=== PATIENT | male | born 1945 | race Hispanic/Latino ===

== ENCOUNTER 2018-01-06 11:58 | Inpatient (IN) | payer MEDICARE, OTHER ==
[2018-01-06] MEDS ORDERED: DUONEB *Not for PRN Use IH ONE ×3 (12:42→12:48)
--- NOTE | 2018-01-06 12:47 | Emergency Department Report ---
ED General Adult HPI - General Chief complaint: Dyspnea/Respdistress Stated complaint: JUD Time Seen by Provider: 01/06/18 12:28 Source: patient, EMS Mode of arrival: Stretcher Limitations: No Limitations - History of Present Illness Initial comments: 72-year-old male all old records at [facility]. mo, here eval increasing sob x 2 wks since finished xrt for isolated r lung nodule ca that was blocking the bronchile tube, here w/ hx of esld, with increasing malaise and failure to thrive since finished xrt 2 wks ago, no fever but cough mild prurlence , hx of pneumonia shot and flu shot,( this year), hx of copd received neb and solumedrol en route, and was on nrb en route but is on home o2 now at sat of 92 % now, presents w/ dyspnea and diff breathing worsening x 2 wks. - Related Data Home Medications Medication Instructions Recorded Confirmed Last Taken Albuterol Sulfate [Proair 90 mcg IH 4XD PRN 01/06/18 01/06/18 Unknown Respiclick] Calcipotriene [Calcipotriene 1 applicatio TP BID 01/06/18 01/06/18 Unknown 0.005%] Clobetasol Propionate [Clobetasol 1 applicatio TP BID 01/06/18 01/06/18 Unknown Propionate 0.05%] Desonide [Desonide 0.05%] 1 applicatio TP BID 01/06/18 01/06/18 Unknown HYDROmorphone [Dilaudid] 1 mg PO Q6HR PRN 01/06/18 01/06/18 Unknown Lactulose 10 gm PO BID 01/06/18 01/06/18 Unknown Levofloxacin [Levaquin] 750 mg PO QDAY 01/06/18 01/06/18 Unknown Megestrol Acetate [Megace Es] 1,250 mg PO QDAY 01/06/18 01/06/18 Unknown Mometasone Furoate [Asmanex] 220 mcg IH BID 01/06/18 01/06/18 Unknown Omeprazole 20 mg PO QDAY 01/06/18 01/06/18 Unknown guaiFENesin [Guaifenesin] 400 mg PO TID PRN 01/06/18 01/06/18 Unknown Allergies Allergy/AdvReac Type Severity Reaction Status Date / Time No Known Allergies Allergy Unverified 01/06/18 12:22 ED Review of Systems ROS: Stated complaint: JUD Other details as noted in HPI Comment: All other systems reviewed and negative Eyes: denies: eye pain ENT: denies: ear pain, throat pain Respiratory: shortness of breath, SOB with exertion, SOB at rest, wheezing Cardiovascular: denies: chest pain, palpitations, syncope, paroxysmal nocturnal dyspnea Endocrine: denies: excessive sweating Gastrointestinal: denies: abdominal pain, nausea, vomiting, diarrhea, constipation, hematemesis, hematochezia Genitourinary: denies: urgency, dysuria, hematuria, discharge Neurological: other (baseline ms). denies: numbness, paresthesias, abnormal gait, vertigo Hematological/Lymphatic: denies: easy bruising ED Past Medical Hx - Past Medical History Previous Medical History?: Yes Hx Liver Disease: Yes Hx of Cancer: Yes (lung) - Social History Smoking Status: Former Smoker - Medications Home Medications: Home Medications Medication Instructions Recorded Confirmed Last Taken Type Albuterol Sulfate [Proair 90 mcg IH 4XD PRN 01/06/18 01/06/18 Unknown History Respiclick] Calcipotriene [Calcipotriene 1 applicatio TP BID 01/06/18 01/06/18 Unknown History 0.005%] Clobetasol Propionate [Clobetasol 1 applicatio TP BID 01/06/18 01/06/18 Unknown History Propionate 0.05%] Desonide [Desonide 0.05%] 1 applicatio TP BID 01/06/18 01/06/18 Unknown History HYDROmorphone [Dilaudid] 1 mg PO Q6HR PRN 01/06/18 01/06/18 Unknown History Lactulose 10 gm PO BID 01/06/18 01/06/18 Unknown History Levofloxacin [Levaquin] 750 mg PO QDAY 01/06/18 01/06/18 Unknown History Megestrol Acetate [Megace Es] 1,250 mg PO QDAY 01/06/18 01/06/18 Unknown History Mometasone Furoate [Asmanex] 220 mcg IH BID 01/06/18 01/06/18 Unknown History Omeprazole 20 mg PO QDAY 01/06/18 01/06/18 Unknown History guaiFENesin [Guaifenesin] 400 mg PO TID PRN 01/06/18 01/06/18 Unknown History ED Physical Exam - General Limitations: No Limitations General appearance: alert, anxious - Head Head exam: Present: atraumatic, normocephalic - Eye Eye exam: Present: PERRL, EOMI - ENT ENT exam: Present: normal exam, normal orophraynx, mucous membranes dry - Neck Neck exam: Present: normal inspection, full ROM. Absent: tenderness, meningismus, lymphadenopathy, thyromegaly - Respiratory Respiratory exam: Present: respiratory distress, wheezes, rales, rhonchi, prolonged expiratory. Absent: stridor - Cardiovascular Cardiovascular Exam: Present: tachycardia. Absent: systolic murmur, diastolic murmur, rubs, gallop - GI/Abdominal GI/Abdominal exam: Present: soft. Absent: tenderness, guarding, rebound, mass, bruit, pulsatile mass - Extremities Exam Extremities exam: Absent: tenderness, pedal edema, joint swelling, calf tenderness - Neurological Exam Neurological exam: Present: alert, oriented X3, CN II-XII intact. Absent: motor sensory deficit - Psychiatric Psychiatric exam: Present: normal affect ED Course Vital Signs 01/06/18 01/06/18 01/06/18 12:09 12:15 12:17 Temperature 98 F Pulse Rate 118 H 116 H Respiratory 29 H 33 H Rate Blood Pressure 127/83 135/92 O2 Sat by Pulse 98 97 98 Oximetry 01/06/18 01/06/18 01/06/18 12:30 12:45 13:00 Temperature Pulse Rate 115 H 113 H 117 H Respiratory 34 H 35 H 24 Rate Blood Pressure 128/84 125/86 112/71 O2 Sat by Pulse 93 92 90 Oximetry 01/06/18 01/06/18 01/06/18 13:15 13:30 13:45 Temperature Pulse Rate 109 H 106 H 108 H Respiratory 24 25 H 20 Rate Blood Pressure 116/79 115/76 99/73 O2 Sat by Pulse 95 97 94 Oximetry 01/06/18 01/06/18 01/06/18 14:00 15:00 16:00 Temperature Pulse Rate 113 H 110 H 108 H Respiratory 24 32 H 29 H Rate Blood Pressure 127/78 114/76 115/82 O2 Sat by Pulse 94 Oximetry - Reevaluation(s) Reevaluation #1: 01/06/18 17:18 Patient placed on cardiac care nurse and continuous pulse ox DuoNeb started steroids were given workup for dyspnea and failure to thrive was ordered ED Medical Decision Making - Lab Data Result diagrams: 01/06/18 12:50 01/06/18 12:50 - EKG Data -: EKG Interpreted by Me EKG shows normal: sinus rhythm - EKG Data When compared to previous EKG there are: other (no acute ischemic change) - Radiology Data Radiology results: report reviewed - Medical Decision Making CT was unable to be completed patient was uncooperative. Therefore a VQ scan. Patient was discussed with Dr. Mchugh for admitted on the hospitalist service and status the [facility] is on diversion. She was requesting transfer to the [facility] but they're not working transfers at this time. Patient needs admission for persistent dyspnea. Does have history of lung cancer status post x-ray treatment weeks ago. He is also fair to thrive and malaise. He also has history of COPD with acute COPD exacerbation. I will need to admit given his persistent worsening dyspnea elevated d-dimer rule out DVT PE with the dyspnea and hypoxia Dr. Mchugh's awhere of the patient and will evaluate the patient in the ED, for admit. Critical Care Time: Yes Critical care time in (mins) excluding proc time.: 30 Critical care attestation.: If time is entered above; I have spent that time in minutes in the direct care of this critically ill patient, excluding procedure time. ED Disposition Clinical Impression: Acute dyspnea, COPD (chronic obstructive pulmonary disease), Hypoxia, Elevated d-dimer Disposition: OP ADMIT IP TO THIS HOSP Is pt being admited?: Yes Condition: Stable Instructions: Chronic Obstructive Pulmonary Disease (ED) Time of Disposition: 17:23
[2018-01-06 13:10] LABS: Hematocrit 44.7 % (35.5-45.6); Mean Corpuscular HGB Conc 34 % (32-34); Mean Corpuscular Hemoglobin 32 pg (28-32); Mean Corpuscular Volume 96 fl (84-94); Platelet Count 265 K/mm3 (140-440); Red Blood Count 4.64 M/mm3 (3.65-5.03); Red Cell Distribution Width 16.4 % (13.2-15.2)
[2018-01-06 13:17] LABS: INR 1.05 (0.87-1.13)
[2018-01-06 13:19] LABS: BUN/Creatinine Ratio 56; Blood Urea Nitrogen 39 mg/dL (9-20); Calcium 9.4 mg/dL (8.4-10.2); Hemolysis Index 108
[2018-01-06 14:20] LABS: Band Neutrophils # (Manual) 0.8 K/mm3; Basophils % (Manual) 0 % (0.0-1.8); Eosinophils % (Manual) 0 % (0.0-4.3); Monocytes % (Manual) 2 % (0.0-7.3); RBC Morphology Normal; Total Cells Counted 100
--- NOTE | 2018-01-06 14:42 | XRay Report ---
AP CHEST: HISTORY: Shortness of breath No comparison. The lungs are hyperinflated consistent with severe emphysema. Interstitial markings are prominent bilaterally but no convincing pneumonia, large pleural effusion or pneumothorax. Heart size and pulmonary vascularity are within normal limits. Lines and tubes overlie the chest. IMPRESSION: Advanced emphysema.
[2018-01-06] MEDS ORDERED: NACL 0.9% 500 ML 500 ML IV ONE (15:33)
[2018-01-06] MEDS ORDERED: DILAUDID PO ONE (17:14)
--- NOTE | 2018-01-06 17:18 | History and Physical Report ---
History of Present Illness Chief complaint: I cant breathe History of present illness: 72 YO Male with Lung Cancer S/P Radiation Therapy, COPD, Chronic Respiratory Failure on Home Oxygen, Severe Malnutrition presents to ED for evaluation. Pt states that he has experienced shortness of breath for the past 2 weeks, with worsening symptoms over the past 2 days. Pt acknowledges dypsnea at rest and with exertion. Pt denies fever, chills, CP, Palpitations, Syncope, Hemoptysis, leg swelling, calf pain, individual/family history of DVT/PE, recent ill contacts. PT seen and evaluated in ED and found to have hypoxemic respiratory failure as well as Bilateral lower lobe pneumonia which is complicated by sepsis. Pt admitted and initiated on sepsis/pneumonia protocol. Past History Past Medical History: cancer Past Surgical History: No surgical history, Other (reviewed) Social history: , lives with family Family history: hypertension Medications and Allergies Allergies Allergy/AdvReac Type Severity Reaction Status Date / Time No Known Allergies Allergy Unverified 01/06/18 12:22 Home Medications Medication Instructions Recorded Confirmed Last Taken Type Albuterol Sulfate [Proair 90 mcg IH 4XD PRN 01/06/18 01/06/18 Unknown History Respiclick] Calcipotriene [Calcipotriene 1 applicatio TP BID 01/06/18 01/06/18 Unknown History 0.005%] Clobetasol Propionate [Clobetasol 1 applicatio TP BID 01/06/18 01/06/18 Unknown History Propionate 0.05%] Desonide [Desonide 0.05%] 1 applicatio TP BID 01/06/18 01/06/18 Unknown History HYDROmorphone [Dilaudid] 1 mg PO Q6HR PRN 01/06/18 01/06/18 Unknown History Lactulose 10 gm PO BID 01/06/18 01/06/18 Unknown History Levofloxacin [Levaquin] 750 mg PO QDAY 01/06/18 01/06/18 Unknown History Megestrol Acetate [Megace Es] 1,250 mg PO QDAY 01/06/18 01/06/18 Unknown History Mometasone Furoate [Asmanex] 220 mcg IH BID 01/06/18 01/06/18 Unknown History Omeprazole 20 mg PO QDAY 01/06/18 01/06/18 Unknown History guaiFENesin [Guaifenesin] 400 mg PO TID PRN 01/06/18 01/06/18 Unknown History Active Meds: Active Medications Hydromorphone HCl (Dilaudid) 1 mg PO ONCE ONE Stop: 01/06/18 17:15 Review of Systems Constitutional: weight loss, no weight gain, no fever, no chills Ears, nose, mouth and throat: no ear pain, no ear discharge, no tinnitis, no decreased hearing, no nose pain Cardiovascular: no orthopnea, no palpitations, no rapid/irregular heart beat, no edema, no syncope Respiratory: shortness of breath, no cough, no cough with sputum Gastrointestinal: no abdominal pain, no nausea, no vomiting, no diarrhea, no constipation Genitourinary Male: no hematuria, no flank pain, no discharge, no urinary frequency, no urinary hesitancy Rectal: no pain, no incontinence, no bleeding Musculoskeletal: no neck stiffness, no neck pain, no shooting arm pain, no low back pain Integumentary: no rash, no pruritis, no redness, no sores, no wounds, no jaundice Neurological: no head injury, no transient paralysis, no paralysis, no weakness , no parathesias, no numbness, no tingling Psychiatric: no anxiety, no memory loss, no change in sleep habits, no sleep disturbances, no insomnia, no hypersomnia, no change in appetite Endocrine: no cold intolerance, no heat intolerance, no polyphagia, no excessive thirst, no polydipsia Hematologic/Lymphatic: no easy bruising, no easy bleeding, no lymphadenopathy, no lymphedema Allergic/Immunologic: no urticaria, no allergic rhinitis, no wheezing Exam - Constitutional Vitals: Temp Pulse Resp BP Pulse Ox 98 F 108 H 29 H 115/82 94 01/06/18 12:17 01/06/18 16:00 01/06/18 16:00 01/06/18 16:00 01/06/18 15:00 General appearance: Present: mild distress, cachectic - EENT Eyes: Present: PERRL ENT: hearing intact, clear oral mucosa - Neck Neck: Present: supple, normal ROM - Respiratory Respiratory effort: labored Respiratory: bilateral: diminished, rhonchi - Cardiovascular Heart Sounds: Present: S1 & S2. Absent: rub, click - Extremities Extremities: pulses symmetrical, No edema Peripheral Pulses: abnormal (capillary refill greater than 3.6 seconds) - Abdominal General gastrointestinal: Present: soft, non-tender, non-distended, normal bowel sounds Male genitourinary: Present: normal - Integumentary Integumentary: Present: clear, warm, dry, decreased turgor - Musculoskeletal Musculoskeletal: generalized weakness - Psychiatric Psychiatric: appropriate mood/affect, intact judgment & insight - Neurologic Neurologic: CNII-XII intact, moves all extremities Results - Labs CBC & Chem 7: 01/06/18 12:50 01/06/18 12:50 Labs: Abnormal lab results 01/06/18 01/06/18 01/06/18 Range/Units 12:50 12:50 12:53 WBC 12.8 H (4.5-11.0) K/mm3 MCV 96 H (84-94) fl RDW 16.4 H (13.2-15.2) % Seg Neuts % (Manual) 90 H (40.0-70.0) % Lymphocytes % (Manual) 2 L (13.4-35.0) % Seg Neutrophils # Man 11.5 H (1.8-7.7) K/mm3 Lymphocytes # (Manual) 0.2 L (1.2-5.4) K/mm3 D-Dimer 700.31 H (0-234) ng/mlDDU Potassium 5.7 H (3.6-5.0) mmol/L BUN 39 H (9-20) mg/dL Creatinine 0.7 L (0.8-1.5) mg/dL Glucose 176 H (75-100) mg/dL Ammonia (25-60) umol/L 01/06/18 Range/Units 13:00 WBC (4.5-11.0) K/mm3 MCV (84-94) fl RDW (13.2-15.2) % Seg Neuts % (Manual) (40.0-70.0) % Lymphocytes % (Manual) (13.4-35.0) % Seg Neutrophils # Man (1.8-7.7) K/mm3 Lymphocytes # (Manual) (1.2-5.4) K/mm3 D-Dimer (0-234) ng/mlDDU Potassium (3.6-5.0) mmol/L BUN (9-20) mg/dL Creatinine (0.8-1.5) mg/dL Glucose (75-100) mg/dL Ammonia 18.0 L (25-60) umol/L Assessment and Plan - Patient Problems (1) Sepsis Current Visit: Yes Status: Acute Qualifiers: Sepsis type: sepsis due to unspecified organism Qualified Code(s): A41.9 - Sepsis, unspecified organism Plan to address problem: IV antibiotic therapy, blood cultures, urinalysis, Chest X ray, blood cultures, serial lactic acid level, monitor uop q shift, (2) Pneumonia Current Visit: Yes Status: Acute Qualifiers: Laterality: bilateral Lung location: lower lobe of lung Plan to address problem: Pneumonia protocol: IV abx, nebulizer, supplemental oxygen, blood cultures, (3) Lung cancer Current Visit: Yes Status: Acute Qualifiers: Lung location: unspecified part of lung Plan to address problem: S/P Radiation therapy, supportive care, Outpatient oncology f/U (4) COPD exacerbation Current Visit: Yes Status: Acute Plan to address problem: supplemental oxygen, nebs, NIPPV as clinically indicated, steroid therapy, IV antibiotic therapy, (5) Acute respiratory failure Current Visit: Yes Status: Acute Qualifiers: Respiratory failure complication: hypoxia Qualified Code(s): J96.01 - Acute respiratory failure with hypoxia Plan to address problem: Supplemental oxygen, nebulizer therapy, IV abx, supportive, NIPPV as clinically indicated, monitor pulse oximetry, D dimer, CTA chest, (6) DVT prophylaxis Current Visit: Yes Status: Acute
[2018-01-06] MEDS ORDERED: TYLENOL PO PRN ×2 (17:28→17:43)
[2018-01-06] MEDS ORDERED: ZOFRAN IV PRN (17:43)
[2018-01-06] MEDS ORDERED: NACL 0.9% 1000 ML IV ONE (17:43)
[2018-01-06] MEDS ORDERED: NON-FORMULARY (Guaifenesin [Guaifenesin] 400 MG) PO PRN (17:47)
[2018-01-06] MEDS ORDERED: ROBITUSSIN PO PRN (20:00)
[2018-01-06] MEDS: DUONEB *Not for PRN Use IH SCH (20:17)
[2018-01-06] MEDS: CEPHULAC PR SCH (21:43)
[2018-01-06] MEDS ORDERED: CLOBETASOL PROPIONATE TP SCH (22:00)
[2018-01-06] MEDS ORDERED: CALCIPOTRIENE TP SCH (22:00)
[2018-01-06] MEDS ORDERED: MOMETASONE FUROATE 220 MCG IH SCH (22:00)
[2018-01-06] MEDS ORDERED: DESONIDE TP SCH (22:00)
[2018-01-06] MEDS: TEMOVATE TP SCH (23:50)
[2018-01-07 00:37] LABS: Bilirubin,Urine NEG (Negative); Blood,Urine NEG (Negative); Color,Urine Yellow (Yellow); Hyaline Casts,Urine 1 /LPF; Mucus,Urine FEW /HPF; Nitrite,Urine NEG (Negative); Protein,Urine <15 mg/dL mg/dL (Negative); RBC,Urine < 1.0 /HPF (0.0-6.0)
[2018-01-07] MEDS: DUONEB *Not for PRN Use IH SCH ×4 (01:08→20:53)
[2018-01-07] MEDS: DILAUDID PO PRN ×2 (01:20→11:02)
[2018-01-07] MEDS ORDERED: ROCEPHIN/NS 2 GM/100 ML 2 GM/100 ML BAG IV SCH (10:00)
[2018-01-07] MEDS ORDERED: NON-FORMULARY (Omeprazole [Omeprazole] 20 MG) PO SCH (10:00)
[2018-01-07] MEDS ORDERED: MEGESTROL ACETATE PO SCH (10:00)
[2018-01-07] MEDS: ZITHROMAX 500 MG in NACL 0.9% 250ML 250 ML IV SCH (10:45)
[2018-01-07] MEDS: PROTONIX PO SCH (11:02)
--- NOTE | 2018-01-07 12:50 | Cat Scan Report ---
CTA CHEST INDICATION: Evaluate for pulmonary embolism. COMPARISON: None similar. FINDINGS: Chest CTA performed following intravenous administration of 100 cc of Omnipaque 350. Rotational MIP's also obtained. Normal heart size. No pericardial effusion or size significant adenopathy. Patent central airway. No aortic aneurysm or dissection. No suspicious pulmonary arterial filling defects. Extensive emphysematous changes throughout both lungs with greatest involvement superiorly. Bibasilar bronchiectasis also noted leading to mild bilateral lower lobe scarring. Right more than left basilar atelectasis also noted with mild hypodense possible right basilar pleural thickening and/or some fluid. Few upper abdominal images demonstrate small calcified hepatic and splenic granulomas. Subtle left hepatic lobe surface nodularity questioned. Partially imaged calcified gallstones measure up to 0.7 cm. A left upper quadrant port tubing extends into the SVC. Osteopenia/osteoporosis. Mild thoracic spine degenerative spurring at few levels. CONCLUSION: 1. No CT evidence of pulmonary embolism in this patient with advanced emphysematous changes, as described. Mild bibasilar atelectasis/chronic changes also noted, as described. 2. Various other incidental findings, as above. Thank you for the opportunity to participate in this patient's care.
[2018-01-07] MEDS: CEPHULAC PR SCH ×2 (13:39→22:34)
[2018-01-07] MEDS: FLONASE NS SCH (15:23)
[2018-01-07] MEDS: cefTRIAXone 2 GM in NACL 0.9% 20 ML IV SCH (15:24)
--- NOTE | 2018-01-07 17:03 | Progress Note ---
Assessment and Plan Assessment and plan: Patient is a 72-year-old man with a history of lung cancer status post radiation therapy, chronic Respiratory Failure on Home Oxygen due to COPD who presents with worsening shortness of breath. Pt admitted and initiated on sepsis /pneumonia protocol. pCXR reported as Advanced emphysema. CTA chest report as Normal heart size. No pericardial effusion or size significant adenopathy. Patent central airway. No aortic aneurysm or dissection. No suspicious pulmonary arterial filling defects. Extensive emphysematous changes throughout both lungs with greatest involvement superiorly. Bibasilar bronchiectasis also noted leading to mild bilateral lower lobe scarring. Right more than left basilar atelectasis also noted with mild hypodense possible right basilar pleural thickening and/or some fluid. Few upper abdominal images demonstrate small calcified hepatic and splenic granulomas. Subtle left hepatic lobe surface nodularity questioned. Partially imaged calcified gallstones measure up to 0.7 cm. A left upper quadrant port tubing extends into the SVC. Osteopenia/osteoporosis. Mild thoracic spine degenerative spurring at few levels. Impression 1. No CT evidence of pulmonary embolism in this patient with advanced emphysematous changes, as described. Mild bibasilar atelectasis/ chronic changes also noted, as described. 2. Various other incidental findings, as above. Thank you for the opportunity to participate in this patient's care. -Acute on chronic hypoxic respiratory failure due to COPD: treat the COPD -AE COPD with sepsis bronchitis: treat with iv steroids, iv abx, nebs -Lung Cancer s/p radiation without lung nodule seen on CTA chest -Bronchiectasis: treat with bronchodilators -No Pneumonia History Interval history: Patient was seen and examined. Follow-up on current diagnosis shortness of breath which still present. Overnight uneventful. Patient denies any nausea/ vomiting or severe headaches. Imaging, nursing note, chart, labs and old chart reviewed. Discussed with patient. and grandson at bedside Hospitalist Physical - Physical exam Narrative exam: GEN: Severely malnourished cachectic BMI 16 NAD, AWAKE, ALERT, ORIENTATED 3 HEENT: NCAT, EOMI, PERRL, OP Clear NECK: supple, no adenopathy, no thyromegaly, no JVD CVS/HEART: RRR, NORMAL S1S2, pulses present bilaterally CHEST/LUNGS: Coarse breath sounds bilaterally with rhonchi, diminished breath sounds bilaterally, Symmetrical chest expansion, reduced air entry bilaterally GI/Abdomen: soft, NTND, good bowel sounds, no guarding or rebound /Bladder: no suprapubic tenderness, no CVA or paraspinal tenderness EXT/Skin: no c/c/e, no obvious rash MSK: FROM x 4 Neuro: CN 2-12 grossly intact, no new focal deficits Psych: calm - Constitutional Vitals: Temp Pulse Resp BP Pulse Ox 97.8 F 121 H 20 100/61 93 01/07/18 15:38 01/07/18 15:38 01/07/18 15:38 01/07/18 15:38 01/07/18 15:38 General appearance: Present: cachectic. Absent: mild distress Results - Labs CBC & Chem 7: 01/06/18 12:50 01/06/18 12:50 Labs: Laboratory Last Values WBC 12.8 K/mm3 (4.5-11.0) H 01/06/18 12:50 RBC 4.64 M/mm3 (3.65-5.03) 01/06/18 12:50 Hgb 15.0 gm/dl (11.8-15.2) 01/06/18 12:50 Hct 44.7 % (35.5-45.6) 01/06/18 12:50 MCV 96 fl (84-94) H 01/06/18 12:50 MCH 32 pg (28-32) 01/06/18 12:50 MCHC 34 % (32-34) 01/06/18 12:50 RDW 16.4 % (13.2-15.2) H 01/06/18 12:50 Plt Count 265 K/mm3 (140-440) 01/06/18 12:50 Add Manual Diff Complete 01/06/18 12:50 Total Counted 100 01/06/18 12:50 Seg Neuts % (Manual) 90 % (40.0-70.0) H 01/06/18 12:50 Band Neutrophils % 6.0 % 01/06/18 12:50 Lymphocytes % (Manual) 2 % (13.4-35.0) L 01/06/18 12:50 Reactive Lymphs % (Man) 0 % 01/06/18 12:50 Monocytes % (Manual) 2 % (0.0-7.3) 01/06/18 12:50 Eosinophils % (Manual) 0 % (0.0-4.3) 01/06/18 12:50 Basophils % (Manual) 0 % (0.0-1.8) 01/06/18 12:50 Metamyelocytes % 0 % 01/06/18 12:50 Myelocytes % 0 % 01/06/18 12:50 Promyelocytes % 0 % 01/06/18 12:50 Blast Cells % 0 % 01/06/18 12:50 Nucleated RBC % Not Reportable 01/06/18 12:50 Seg Neutrophils # Man 11.5 K/mm3 (1.8-7.7) H 01/06/18 12:50 Band Neutrophils # 0.8 K/mm3 01/06/18 12:50 Lymphocytes # (Manual) 0.2 K/mm3 (1.2-5.4) L 01/06/18 12:50 Abs React Lymphs (Man) 0.0 K/mm3 01/06/18 12:50 Monocytes # (Manual) 0.2 K/mm3 (0.0-0.8) 01/06/18 12:50 Eosinophils # (Manual) 0.0 K/mm3 (0.0-0.4) 01/06/18 12:50 Basophils # (Manual) 0.0 K/mm3 (0.0-0.1) 01/06/18 12:50 Metamyelocytes # 0.0 K/mm3 01/06/18 12:50 Myelocytes # 0.0 K/mm3 01/06/18 12:50 Promyelocytes # 0.0 K/mm3 01/06/18 12:50 Blast Cells # 0.0 K/mm3 01/06/18 12:50 WBC Morphology Not Reportable 01/06/18 12:50 Hypersegmented Neuts Not Reportable 01/06/18 12:50 Hyposegmented Neuts Not Reportable 01/06/18 12:50 Hypogranular Neuts Not Reportable 01/06/18 12:50 Smudge Cells Not Reportable 01/06/18 12:50 Toxic Granulation Not Reportable 01/06/18 12:50 Toxic Vacuolation Not Reportable 01/06/18 12:50 Dohle Bodies Not Reportable 01/06/18 12:50 Pelger-Huet Anomaly Not Reportable 01/06/18 12:50 Kuldeep Rods Not Reportable 01/06/18 12:50 Platelet Estimate Not Reportable 01/06/18 12:50 Clumped Platelets Not Reportable 01/06/18 12:50 Plt Clumps, EDTA Not Reportable 01/06/18 12:50 Large Platelets Not Reportable 01/06/18 12:50 Giant Platelets Not Reportable 01/06/18 12:50 Platelet Satelliting Not Reportable 01/06/18 12:50 Plt Morphology Comment Not Reportable 01/06/18 12:50 RBC Morphology Normal 01/06/18 12:50 Dimorphic RBCs Not Reportable 01/06/18 12:50 Polychromasia Not Reportable 01/06/18 12:50 Hypochromasia Not Reportable 01/06/18 12:50 Poikilocytosis Not Reportable 01/06/18 12:50 Anisocytosis Not Reportable 01/06/18 12:50 Microcytosis Not Reportable 01/06/18 12:50 Macrocytosis Not Reportable 01/06/18 12:50 Spherocytes Not Reportable 01/06/18 12:50 Pappenheimer Bodies Not Reportable 01/06/18 12:50 Sickle Cells Not Reportable 01/06/18 12:50 Target Cells Not Reportable 01/06/18 12:50 Tear Drop Cells Not Reportable 01/06/18 12:50 Ovalocytes Not Reportable 01/06/18 12:50 Helmet Cells Not Reportable 01/06/18 12:50 Alvarez-[place] Bodies Not Reportable 01/06/18 12:50 [place] Rings Not Reportable 01/06/18 12:50 Michelle Cells Not Reportable 01/06/18 12:50 Bite Cells Not Reportable 01/06/18 12:50 Crenated Cell Not Reportable 01/06/18 12:50 Elliptocytes Not Reportable 01/06/18 12:50 Acanthocytes (Spur) Not Reportable 01/06/18 12:50 Rouleaux Not Reportable 01/06/18 12:50 Hemoglobin C Crystals Not Reportable 01/06/18 12:50 Schistocytes Not Reportable 01/06/18 12:50 Malaria parasites Not Reportable 01/06/18 12:50 Javid Bodies Not Reportable 01/06/18 12:50 Hem Pathologist Commnt No 01/06/18 12:50 PT 14.2 Sec. (12.2-14.9) 01/06/18 12:53 INR 1.05 (0.87-1.13) 01/06/18 12:53 D-Dimer 700.31 ng/mlDDU (0-234) H 01/06/18 12:53 Sodium 142 mmol/L (137-145) 01/06/18 12:50 Potassium 5.7 mmol/L (3.6-5.0) H 01/06/18 12:50 Chloride 100.1 mmol/L (98-107) 01/06/18 12:50 Carbon Dioxide 27 mmol/L (22-30) 01/06/18 12:50 Anion Gap 21 mmol/L 01/06/18 12:50 BUN 39 mg/dL (9-20) H 01/06/18 12:50 Creatinine 0.7 mg/dL (0.8-1.5) L 01/06/18 12:50 Estimated GFR > 60 ml/min 01/06/18 12:50 BUN/Creatinine Ratio 56 % 01/06/18 12:50 Glucose 176 mg/dL (75-100) H 01/06/18 12:50 Lactic Acid 1.70 mmol/L (0.7-2.0) 01/07/18 04:46 Calcium 9.4 mg/dL (8.4-10.2) 01/06/18 12:50 Ammonia 18.0 umol/L (25-60) L 01/06/18 13:00 Troponin T < 0.010 ng/mL (0.00-0.029) 01/06/18 12:53 NT-Pro-B Natriuret Pep 825.8 pg/mL (0-900) 01/06/18 12:53 Urine Color Yellow (Yellow) 01/06/18 23:55 Urine Turbidity Clear (Clear) 01/06/18 23:55 Urine pH 5.0 (5.0-7.0) 01/06/18 23:55 Ur Specific [place] 1.025 (1.003-1.030) 01/06/18 23:55 Urine Protein <15 mg/dl mg/dL (Negative) 01/06/18 23:55 Urine Glucose (UA) Neg mg/dL (Negative) 01/06/18 23:55 Urine Ketones Neg mg/dL (Negative) 01/06/18 23:55 Urine Blood Neg (Negative) 01/06/18 23:55 Urine Nitrite Neg (Negative) 01/06/18 23:55 Urine Bilirubin Neg (Negative) 01/06/18 23:55 Urine Urobilinogen 4.0 mg/dL (<2.0) 02 23:55 Ur Leukocyte Esterase Neg (Negative) 01/06/18 23:55 Urine WBC (Auto) 1.0 /HPF (0.0-6.0) 01/06/18 23:55 Urine RBC (Auto) < 1.0 /HPF (0.0-6.0) 01/06/18 23:55 U Epithel Cells (Auto) < 1.0 /HPF (0-13.0) 01/06/18 23:55 Hyaline Casts 1 /LPF 01/06/18 23:55 Urine Mucus Few /HPF 01/06/18 23:55 Blood Type A POSITIVE 01/06/18 17:55 Antibody Screen Negative 01/06/18 17:55
[2018-01-07] MEDS: TEMOVATE TP SCH ×2 (17:56→23:00)
[2018-01-08] MEDS: DUONEB *Not for PRN Use IH SCH ×4 (02:40→20:37)
[2018-01-08] MEDS: CEPHULAC PR SCH ×3 (06:26→23:31)
[2018-01-08] MEDS: PROTONIX PO SCH (09:16)
[2018-01-08] MEDS: FLONASE NS SCH (09:17)
[2018-01-08] MEDS: TEMOVATE TP SCH ×2 (09:17→23:34)
[2018-01-08] MEDS: ZITHROMAX 500 MG in NACL 0.9% 250ML 250 ML IV SCH (09:20)
[2018-01-08] MEDS: DILAUDID PO PRN (09:40)
--- NOTE | 2018-01-08 14:34 | Progress Note ---
Assessment and Plan Assessment and plan: Patient is a 72-year-old man with a history of lung cancer status post radiation therapy, chronic Respiratory Failure on Home Oxygen due to COPD who presents with worsening shortness of breath. Pt admitted and initiated on sepsis /pneumonia protocol. pCXR reported as Advanced emphysema. CTA chest report as Normal heart size. No pericardial effusion or size significant adenopathy. Patent central airway. No aortic aneurysm or dissection. No suspicious pulmonary arterial filling defects. Extensive emphysematous changes throughout both lungs with greatest involvement superiorly. Bibasilar bronchiectasis also noted leading to mild bilateral lower lobe scarring. Right more than left basilar atelectasis also noted with mild hypodense possible right basilar pleural thickening and/or some fluid. Few upper abdominal images demonstrate small calcified hepatic and splenic granulomas. Subtle left hepatic lobe surface nodularity questioned. Partially imaged calcified gallstones measure up to 0.7 cm. A left upper quadrant port tubing extends into the SVC. Osteopenia/osteoporosis. Mild thoracic spine degenerative spurring at few levels. Impression 1. No CT evidence of pulmonary embolism in this patient with advanced emphysematous changes, as described. Mild bibasilar atelectasis/ chronic changes also noted, as described. 2. Various other incidental findings, as above. Thank you for the opportunity to participate in this patient's care. -Acute on chronic hypoxic respiratory failure due to COPD: treat the COPD -AE COPD with sepsis bronchitis: treat with iv steroids, iv abx, nebs -Lung Cancer s/p radiation without lung nodule seen on CTA chest -Bronchiectasis: treat with bronchodilators -No Pneumonia Disposition: Anticipate d/c in 1-2 days. he wants to go home today but is concerned that he can't stand, so I ordered PT, he declined placement, History Interval history: Patient was seen and examined. Follow-up on current diagnosis shortness of breath which still present. Overnight uneventful. Patient denies any nausea/ vomiting or severe headaches. Imaging, nursing note, chart, labs and old chart reviewed. Discussed with patient. and grandson at bedside Hospitalist Physical - Physical exam Narrative exam: GEN: Severely malnourished cachectic BMI 16 NAD, AWAKE, ALERT, ORIENTATED 3 HEENT: NCAT, EOMI, PERRL, OP Clear NECK: supple, no adenopathy, no thyromegaly, no JVD CVS/HEART: RRR, NORMAL S1S2, pulses present bilaterally CHEST/LUNGS: Coarse breath sounds bilaterally with rhonchi, diminished breath sounds bilaterally, Symmetrical chest expansion, reduced air entry bilaterally GI/Abdomen: soft, NTND, good bowel sounds, no guarding or rebound /Bladder: no suprapubic tenderness, no CVA or paraspinal tenderness EXT/Skin: no c/c/e, no obvious rash MSK: FROM x 4 Neuro: CN 2-12 grossly intact, no new focal deficits Psych: calm - Constitutional Vitals: Temp Pulse Resp BP Pulse Ox 98.0 F 104 H 20 120/70 96 01/08/18 08:00 01/08/18 14:08 01/08/18 14:08 01/08/18 08:00 01/08/18 10:00 General appearance: Present: cachectic. Absent: mild distress Results - Labs CBC & Chem 7: 01/06/18 12:50 01/06/18 12:50 Labs: Laboratory Last Values WBC 12.8 K/mm3 (4.5-11.0) H 01/06/18 12:50 RBC 4.64 M/mm3 (3.65-5.03) 01/06/18 12:50 Hgb 15.0 gm/dl (11.8-15.2) 01/06/18 12:50 Hct 44.7 % (35.5-45.6) 01/06/18 12:50 MCV 96 fl (84-94) H 01/06/18 12:50 MCH 32 pg (28-32) 01/06/18 12:50 MCHC 34 % (32-34) 01/06/18 12:50 RDW 16.4 % (13.2-15.2) H 01/06/18 12:50 Plt Count 265 K/mm3 (140-440) 01/06/18 12:50 Add Manual Diff Complete 01/06/18 12:50 Total Counted 100 01/06/18 12:50 Seg Neuts % (Manual) 90 % (40.0-70.0) H 01/06/18 12:50 Band Neutrophils % 6.0 % 01/06/18 12:50 Lymphocytes % (Manual) 2 % (13.4-35.0) L 01/06/18 12:50 Reactive Lymphs % (Man) 0 % 01/06/18 12:50 Monocytes % (Manual) 2 % (0.0-7.3) 01/06/18 12:50 Eosinophils % (Manual) 0 % (0.0-4.3) 01/06/18 12:50 Basophils % (Manual) 0 % (0.0-1.8) 01/06/18 12:50 Metamyelocytes % 0 % 01/06/18 12:50 Myelocytes % 0 % 01/06/18 12:50 Promyelocytes % 0 % 01/06/18 12:50 Blast Cells % 0 % 01/06/18 12:50 Nucleated RBC % Not Reportable 01/06/18 12:50 Seg Neutrophils # Man 11.5 K/mm3 (1.8-7.7) H 01/06/18 12:50 Band Neutrophils # 0.8 K/mm3 01/06/18 12:50 Lymphocytes # (Manual) 0.2 K/mm3 (1.2-5.4) L 01/06/18 12:50 Abs React Lymphs (Man) 0.0 K/mm3 01/06/18 12:50 Monocytes # (Manual) 0.2 K/mm3 (0.0-0.8) 01/06/18 12:50 Eosinophils # (Manual) 0.0 K/mm3 (0.0-0.4) 01/06/18 12:50 Basophils # (Manual) 0.0 K/mm3 (0.0-0.1) 01/06/18 12:50 Metamyelocytes # 0.0 K/mm3 01/06/18 12:50 Myelocytes # 0.0 K/mm3 01/06/18 12:50 Promyelocytes # 0.0 K/mm3 01/06/18 12:50 Blast Cells # 0.0 K/mm3 01/06/18 12:50 WBC Morphology Not Reportable 01/06/18 12:50 Hypersegmented Neuts Not Reportable 01/06/18 12:50 Hyposegmented Neuts Not Reportable 01/06/18 12:50 Hypogranular Neuts Not Reportable 01/06/18 12:50 Smudge Cells Not Reportable 01/06/18 12:50 Toxic Granulation Not Reportable 01/06/18 12:50 Toxic Vacuolation Not Reportable 01/06/18 12:50 Dohle Bodies Not Reportable 01/06/18 12:50 Pelger-Huet Anomaly Not Reportable 01/06/18 12:50 Kuldeep Rods Not Reportable 01/06/18 12:50 Platelet Estimate Not Reportable 01/06/18 12:50 Clumped Platelets Not Reportable 01/06/18 12:50 Plt Clumps, EDTA Not Reportable 01/06/18 12:50 Large Platelets Not Reportable 01/06/18 12:50 Giant Platelets Not Reportable 01/06/18 12:50 Platelet Satelliting Not Reportable 01/06/18 12:50 Plt Morphology Comment Not Reportable 01/06/18 12:50 RBC Morphology Normal 01/06/18 12:50 Dimorphic RBCs Not Reportable 01/06/18 12:50 Polychromasia Not Reportable 01/06/18 12:50 Hypochromasia Not Reportable 01/06/18 12:50 Poikilocytosis Not Reportable 01/06/18 12:50 Anisocytosis Not Reportable 01/06/18 12:50 Microcytosis Not Reportable 01/06/18 12:50 Macrocytosis Not Reportable 01/06/18 12:50 Spherocytes Not Reportable 01/06/18 12:50 Pappenheimer Bodies Not Reportable 01/06/18 12:50 Sickle Cells Not Reportable 01/06/18 12:50 Target Cells Not Reportable 01/06/18 12:50 Tear Drop Cells Not Reportable 01/06/18 12:50 Ovalocytes Not Reportable 01/06/18 12:50 Helmet Cells Not Reportable 01/06/18 12:50 Alvarez-[place] Bodies Not Reportable 01/06/18 12:50 [place] Rings Not Reportable 01/06/18 12:50 Michelle Cells Not Reportable 01/06/18 12:50 Bite Cells Not Reportable 01/06/18 12:50 Crenated Cell Not Reportable 01/06/18 12:50 Elliptocytes Not Reportable 01/06/18 12:50 Acanthocytes (Spur) Not Reportable 01/06/18 12:50 Rouleaux Not Reportable 01/06/18 12:50 Hemoglobin C Crystals Not Reportable 01/06/18 12:50 Schistocytes Not Reportable 01/06/18 12:50 Malaria parasites Not Reportable 01/06/18 12:50 Javid Bodies Not Reportable 01/06/18 12:50 Hem Pathologist Commnt No 01/06/18 12:50 PT 14.2 Sec. (12.2-14.9) 01/06/18 12:53 INR 1.05 (0.87-1.13) 01/06/18 12:53 D-Dimer 700.31 ng/mlDDU (0-234) H 01/06/18 12:53 Sodium 142 mmol/L (137-145) 01/06/18 12:50 Potassium 5.7 mmol/L (3.6-5.0) H 01/06/18 12:50 Chloride 100.1 mmol/L (98-107) 01/06/18 12:50 Carbon Dioxide 27 mmol/L (22-30) 01/06/18 12:50 Anion Gap 21 mmol/L 01/06/18 12:50 BUN 39 mg/dL (9-20) H 01/06/18 12:50 Creatinine 0.7 mg/dL (0.8-1.5) L 01/06/18 12:50 Estimated GFR > 60 ml/min 01/06/18 12:50 BUN/Creatinine Ratio 56 % 01/06/18 12:50 Glucose 176 mg/dL (75-100) H 01/06/18 12:50 Lactic Acid 1.70 mmol/L (0.7-2.0) 01/07/18 04:46 Calcium 9.4 mg/dL (8.4-10.2) 01/06/18 12:50 Ammonia 18.0 umol/L (25-60) L 01/06/18 13:00 Troponin T < 0.010 ng/mL (0.00-0.029) 01/06/18 12:53 NT-Pro-B Natriuret Pep 825.8 pg/mL (0-900) 01/06/18 12:53 Urine Color Yellow (Yellow) 01/06/18 23:55 Urine Turbidity Clear (Clear) 01/06/18 23:55 Urine pH 5.0 (5.0-7.0) 01/06/18 23:55 Ur Specific [place] 1.025 (1.003-1.030) 01/06/18 23:55 Urine Protein <15 mg/dl mg/dL (Negative) 01/06/18 23:55 Urine Glucose (UA) Neg mg/dL (Negative) 01/06/18 23:55 Urine Ketones Neg mg/dL (Negative) 01/06/18 23:55 Urine Blood Neg (Negative) 01/06/18 23:55 Urine Nitrite Neg (Negative) 01/06/18 23:55 Urine Bilirubin Neg (Negative) 01/06/18 23:55 Urine Urobilinogen 4.0 mg/dL (<2.0) 01/06/18 23:55 Ur Leukocyte Esterase Neg (Negative) 01/06/18 23:55 Urine WBC (Auto) 1.0 /HPF (0.0-6.0) 01/06/18 23:55 Urine RBC (Auto) < 1.0 /HPF (0.0-6.0) 01/06/18 23:55 U Epithel Cells (Auto) < 1.0 /HPF (0-13.0) 01/06/18 23:55 Hyaline Casts 1 /LPF 01/06/18 23:55 Urine Mucus Few /HPF 01/06/18 23:55 Blood Type A POSITIVE 01/06/18 17:55 Antibody Screen Negative 01/06/18 17:55
[2018-01-08] MEDS: cefTRIAXone 2 GM in NACL 0.9% 20 ML IV SCH (14:46)
[2018-01-08] MEDS: NYSTATIN PO SCH ×2 (17:34→23:32)
[2018-01-09] MEDS: DUONEB *Not for PRN Use IH SCH ×3 (02:23→14:06)
[2018-01-09 09:44] VITALS: BP 124/78
[2018-01-09] MEDS: PROTONIX PO SCH (09:50)
[2018-01-09] MEDS: NYSTATIN PO SCH ×2 (09:50→14:06)
[2018-01-09] MEDS ORDERED: ZITHROMAX PO SCH (10:00)
[2018-01-09] MEDS: CEPHULAC PR SCH (10:24)
[2018-01-09] MEDS: FLONASE NS SCH (10:50)
[2018-01-09] MEDS: TEMOVATE TP SCH (10:51)
--- NOTE | 2018-01-09 11:29 | Vascular Lab Report ---
LOWER EXTREMITY VENOUS DUPLEX: REASON FOR EXAM: Deep venous thrombosis. COMMENTS ON THE RIGHT: All veins visualized are freely compressible without evidence of internal echogenicity. Flow is spontaneous and phasic throughout. COMMENTS ON THE LEFT: All veins visualized are freely compressible without evidence of internal echogenicity. Flow is spontaneous and phasic throughout. IMPRESSION: No evidence of acute or chronic deep venous thrombosis in either lower extremity.
--- NOTE | 2018-01-09 12:16 | Discharge Summary ---
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 Pt admitted and initiated on sepsis /pneumonia protocol. pCXR reported as Advanced emphysema. CTA chest report as Normal heart size. No pericardial effusion or size significant adenopathy. Patent central airway. No aortic aneurysm or dissection. No suspicious pulmonary arterial filling defects. Extensive emphysematous changes throughout both lungs with greatest involvement superiorly. Bibasilar bronchiectasis also noted leading to mild bilateral lower lobe scarring. Right more than left basilar atelectasis also noted with mild hypodense possible right basilar pleural thickening and/or some fluid. Few upper abdominal images demonstrate small calcified hepatic and splenic granulomas. Subtle left hepatic lobe surface nodularity questioned. Partially imaged calcified gallstones measure up to 0.7 cm. A left upper quadrant port tubing extends into the SVC. Osteopenia/osteoporosis. Mild thoracic spine degenerative spurring at few levels. Impression 1. No CT evidence of pulmonary embolism in this patient with advanced emphysematous changes, as described. Mild bibasilar atelectasis/ chronic changes also noted, as described. 2. Various other incidental findings, as above. Thank you for the opportunity to participate in this patient's care. -Acute on chronic hypoxic respiratory failure due to COPD: treat the COPD -AE COPD with sepsis bronchitis: treat with iv steroids, iv abx, nebs -Lung Cancer s/p radiation without lung nodule seen on CTA chest -Bronchiectasis: treat with bronchodilators -Severe Malnutrition, poa, bmi 16.9 -No Pneumonia Disposition: Anticipate home today Disposition: TO HOME OR SELFCARE Time spent for discharge: 36 minutes Core Measure Documentation - Palliative Care Palliative Care/ Comfort Measures: Not Applicable - Core Measures Any of the following diagnoses?: none - VTE Discharge Requirements Deep Vein Thrombosis/Pulmonary Embolism Present on Admission: No Has pt received <5 days of overlap therapy or INR<2.0: No Anticoagulant overlap therapy prescribed at discharge: No Contraindication No Overlap Therapy order at DC: Not Indicated Exam - Physical Exam Narrative exam: GEN: Severely malnourished cachectic BMI 16 NAD, AWAKE, ALERT, ORIENTATED 3 HEENT: NCAT, EOMI, PERRL, OP Clear NECK: supple, no adenopathy, no thyromegaly, no JVD CVS/HEART: RRR, NORMAL S1S2, pulses present bilaterally CHEST/LUNGS: Coarse breath sounds bilaterally with rhonchi, diminished breath sounds bilaterally, Symmetrical chest expansion, reduced air entry bilaterally GI/Abdomen: soft, NTND, good bowel sounds, no guarding or rebound /Bladder: no suprapubic tenderness, no CVA or paraspinal tenderness EXT/Skin: no c/c/e, no obvious rash MSK: FROM x 4 Neuro: CN 2-12 grossly intact, no new focal deficits Psych: calm Checks at the - Constitutional Vitals: Temp Pulse Resp BP Pulse Ox 97.7 F 85 20 124/78 96 01/09/18 07:51 01/09/18 10:00 01/09/18 10:00 01/09/18 07:51 01/09/18 10:00 Plan Activity: other (no strenous activity until cleared by pcp) Diet: advance as tolerated Follow up with: PRIMARY CARE, [Primary Care Provider] - 3-5 Days Prescriptions: Fluticasone [Flonase] 100 mcg NS QDAY #1 bottle HYDROmorphone [Dilaudid] 1 dose PO Q6HR PRN #20 tablet PRN Reason: Pain , Severe (7-10) Ipratropium/Albuterol Sulfate [DUONEB *Not for PRN Use*] 1 ampul IH Q6HRT #30 ampul.neb Levofloxacin [Levaquin TAB] 750 mg PO QDAY #4 tablet Nystatin [Nystatin SUSP] 100,000 unit PO QID #14 day predniSONE [Deltasone] 1 dose PO QDAY #1 mo
== END 2018-01-09 14:05 | disposition home or self-care (01) | DRG 871 ==
LOC: ED 11:58 → 2B-ACE 17:28
PROVIDERS: ADMIT Internal Medicine; ATTEND Internal Medicine
DX: A41.9 Sepsis, unspecified organism (principal); J96.21 Acute and chronic respiratory failure with hypoxia; E43 Unspecified severe protein-calorie malnutrition; J44.1 Chronic obstructive pulmonary disease with (acute) exacerbation; Z68.1 Body mass index [BMI] 19.9 or less, adult; J44.0 Chronic obstructive pulmonary disease with (acute) lower respiratory infection; Z87.891 Personal history of nicotine dependence; Z82.49 Family history of ischemic heart disease and other diseases of the circulatory system; Z85.118 Personal history of other malignant neoplasm of bronchus and lung; J20.9 Acute bronchitis, unspecified
CPT/HCPCS: 36415; 71045; 71275; 80048; 81001; 82140; 83880; 84484; 85007; 85025; 85379; 85610; 86850; 86900; 86901; 87040; 87086; 93005; 93010; 93970; 94640; 94760; 96361; 99291; J0456; J0696; J2920; J7030; J7040; J7050; Q9967